=== PATIENT | female | born 1995 | race African-American/Black ===

== ENCOUNTER 2018-10-28 15:11 | Emergency (ER) | payer OTHER ==
[~2018-10-28] VITALS: Ht 152.4 cm; Wt 67.7 kg
[2018-10-28] MEDS ORDERED: FERR325T3 PO (15:28)
[2018-10-28] MEDS ORDERED: EPIN0.155 IM (15:28)
[2018-10-28] MEDS ORDERED: NORCO, ANEXSIA 5/325MG TABLET (HYDROcodone/ACETAMINOPHEN) PO ONE (15:45)
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
[2018-10-28] MEDS ORDERED: CYCL10TA PO (16:28)
[2018-10-28] MEDS ORDERED: IBUP-1022 PO (16:28)
[2018-10-28 16:42] VITALS: BP 137/90
== END 2018-10-28 16:43 | disposition home or self-care (01) ==
LOC: M ED 15:11 → EDBD 15:11 → M ED 16:43
DX: S40.022A Contusion of left upper arm, initial encounter (principal); V48.9XXA Unspecified car occupant injured in noncollision transport accident in traffic accident, initial encounter; F17.210 Nicotine dependence, cigarettes, uncomplicated

== ENCOUNTER 2019-09-04 18:16 | Emergency (ER) | payer OTHER ==
[~2019-09-04] VITALS: Ht 152.4 cm; Wt 65.0 kg
[~2019-09-04 18:16] MED LIST: CYCL10TA PO; EPIN0.1510 IM; FERR325T3 PO; IBUP-1022 PO
[2019-09-04] MEDS ORDERED: ACET-897 PO (18:23)
[2019-09-04] MEDS ORDERED: DEPO150I12 IM (18:23)
[2019-09-04] MEDS ORDERED: PROAAER10 INH (18:23)
[2019-09-04] MEDS ORDERED: ALBU1.25 NEB (18:23)
[2019-09-04] MEDS ORDERED: ONDANSETRON 4MG/2ML VIAL (J2405) IV ONE (18:45)
[2019-09-04] MEDS ORDERED: NS 1,000 ML IV ONE (18:45)
[2019-09-04] MEDS ORDERED: IPRATROPIUM 0.5MG/ALBUTEROL 2.5MG INH SOL UD 3ML (DUONEB)(J7620) NEB ONE (18:45)
[2019-09-04] MEDS ORDERED: methylPREDNISolone INJ 125 MG/2 ML VIAL (J2930) IV ONE (18:45)
[2019-09-04] MEDS ORDERED: KETOROLAC 30 MG/ML VIAL (J1885) IV ONE (18:45)
[2019-09-04 19:16] LABS: BASO % 0.5 % (0.0-1.0); EOS # 0.1 10^3/uL (0.0-0.5); EOS % 1.6 % (0.0-3.0); HEMATOCRIT 32.9 % (36.0-47.0); LYMPH # 1.8 10^3/uL (1.5-5.0); LYMPH % 28.6 % (24.0-44.0); MEAN CORPUSCULAR HEMOGLOBIN 21.7 pg (27.0-33.0); MEAN CORPUSCULAR HGB CONC 30.4 g/dl (32.0-36.5); MEAN CORPUSCULAR VOLUME 71.5 fl (80.0-96.0); MONO # 0.5 10^3/uL (0.0-0.8); MONO % 8.3 % (0.0-5.0); NEUTROPHILS # 3.7 10^3/uL (1.5-8.5); NEUTROPHILS % 60.8 % (36.0-66.0); PLATELET COUNT, AUTOMATED 295 10^3/uL (150-450); WHITE BLOOD COUNT 6.2 10^3/uL (4.0-10.0)
[2019-09-04 19:38] LABS: ALBUMIN 3.9 GM/DL (3.2-5.2); ALT/SGPT 18 U/L (12-78); BILIRUBIN,DIRECT < 0.1 MG/DL (0.0-0.2); BILIRUBIN,TOTAL 0.3 MG/DL (0.2-1.0); LIPASE 81 U/L (73-393); TOTAL PROTEIN 7.5 GM/DL (6.4-8.2)
[2019-09-04 19:44] LABS: INFLUENZA A AMPLIFICATION NEGATIVE (NEGATIVE); INFLUENZA B AMPLIFICATION NEGATIVE (NEGATIVE)
--- NOTE | 2019-09-04 20:00 | REP ---
Clinical: Shortness of breath. Technique: PA and lateral. Findings: Mediastinum and cardiac silhouette are normal. Increased coarsened interstitial markings emanating from the jay suggest bronchitis versus chronic reactive airway disease/asthma. No focal consolidation. No effusion. No pneumothorax. Skeletal structures intact. Impression: Possible bronchitis versus chronic reactive airway disease Electronically Signed by Keshav Khoury MD 09/04/2019 07:52 P
[2019-09-04] MEDS ORDERED: ALBUTEROL SULFATE 2.5 MG/0.5 ML INH NEB SOLN NEB ONE (20:15)
[2019-09-04] MEDS ORDERED: ISOVUE-370 76% 100ML VIAL (Q9967) As Ordered ONE (20:20)
--- NOTE | 2019-09-04 21:17 | REPVR ---
PROCEDURE INFORMATION: Exam: CT Abdomen And Pelvis With Contrast Exam date and time: 09/04/2019 8:31 PM Age: 23 years old Clinical history: Vomiting; Abdominal pain; Periumbilical; Additional info: Vomiting/diarrhea/periumbilic pain TECHNIQUE: Imaging protocol: Computed tomography of the abdomen and pelvis with intravenous contrast. Radiation optimization: All CT scans at this facility use at least one of these dose optimization techniques: automated exposure control; mA and/or kV adjustment per patient size (includes targeted exams where dose is matched to clinical indication); or iterative reconstruction. Contrast material: ISOVUE 370; Contrast volume: 100 ml; Contrast route: IV; COMPARISON: No relevant prior studies available. FINDINGS: Liver: Normal. No mass. Gallbladder and bile ducts: Normal. No calcified stones. No ductal dilation. Pancreas: Normal. No ductal dilation. Spleen: Normal. No splenomegaly. Adrenals: Normal. No mass. Kidneys and ureters: Normal. No hydronephrosis. Stomach and bowel: Unremarkable. No obstruction. No mucosal thickening. Appendix: Appendectomy. Intraperitoneal space: Unremarkable. No free air. No significant fluid collection. Vasculature: Unremarkable. No abdominal aortic aneurysm. Lymph nodes: Unremarkable. No enlarged lymph nodes. Bladder: Mild thickening of the urinary bladder wall. Reproductive: Unremarkable as visualized. Bones/joints: Bilateral sacralization with pseudarthrosis. No acute fracture. Soft tissues: Unremarkable. IMPRESSION: 1. Mild thickening of the urinary bladder wall, can be seen with cystitis. Correlate with urinalysis. No evidence of pyelonephritis. 2. Otherwise, no acute intra-abdominal abnormality. Electronically signed by: Jer Davies On 09/04/2019 21:17:50 PM
[2019-09-04] MEDS ORDERED: PRED20TA PO (21:51)
[2019-09-04] MEDS ORDERED: AZIT-12 PO (21:51)
[2019-09-04] MEDS ORDERED: ONDA4TAB6 PO (21:51)
[2019-09-04 21:58] VITALS: BP 120/68
== END 2019-09-04 22:07 | disposition home or self-care (01) ==
LOC: M ED 18:16
DX: J45.901 Unspecified asthma with (acute) exacerbation (principal); R11.10 Vomiting, unspecified; R19.7 Diarrhea, unspecified; Z79.51 Long term (current) use of inhaled steroids; Z79.899 Other long term (current) drug therapy; Z91.010 Allergy to peanuts
CPT/HCPCS: 71046; 74177; 80047; 80076; 81001; 83690; 84702; 85025; 87502; 87880; 94640; 96361; 96374; 96375; 99284; J1885; J2405; J2930; Q9967

== ENCOUNTER 2020-01-01 14:26 | Emergency (ER) | payer OTHER ==
[~2020-01-01] VITALS: Ht 152.4 cm; Wt 78.5 kg
[~2020-01-01 14:26] MED LIST changes: +ACET-897 PO; +ALBU1.25 NEB; +AZIT-12 PO; +DEPO150I12 IM; +ONDA4TAB6 PO; +PRED20TA PO; +PROAAER10 INH
[2020-01-01] MEDS ORDERED: KETOROLAC 30 MG/ML VIAL (J1885) IV ONE (15:15)
[2020-01-01 15:22] LABS: BASO % 0.6 % (0.0-1.0); EOS # 0.1 10^3/uL (0.0-0.5); EOS % 1.7 % (0.0-3.0); HEMATOCRIT 36.5 % (36.0-47.0); HEMOGLOBIN 10.9 g/dl (12.0-15.5); LYMPH % 31.1 % (24.0-44.0); MEAN CORPUSCULAR HEMOGLOBIN 21.2 pg (27.0-33.0); MEAN CORPUSCULAR HGB CONC 29.9 g/dl (32.0-36.5); MONO # 0.5 10^3/uL (0.0-0.8); MONO % 7.2 % (0.0-5.0); NEUTROPHILS # 3.9 10^3/uL (1.5-8.5); NEUTROPHILS % 59.1 % (36.0-66.0); PLATELET COUNT, AUTOMATED 336 10^3/uL (150-450); RED BLOOD COUNT 5.14 10^6/uL (4.00-5.40); WHITE BLOOD COUNT 6.6 10^3/uL (4.0-10.0)
[2020-01-01 15:56] LABS: ALBUMIN 3.6 GM/DL (3.2-5.2); ALT/SGPT 22 U/L (12-78); BILIRUBIN,DIRECT < 0.1 MG/DL (0.0-0.2); BILIRUBIN,TOTAL 0.4 MG/DL (0.2-1.0); BLOOD UREA NITROGEN 7 MG/DL (7-18); CALCIUM LEVEL 8.7 MG/DL (8.5-10.1); CARBON DIOXIDE LEVEL 27 MEQ/L (21-32); CHLORIDE LEVEL 107 MEQ/L (98-107); GLOMERULAR FILTRATION RATE > 60.0 (>60); GLUCOSE, FASTING 75 MG/DL (70-100); LIPASE 22 U/L (73-393); POTASSIUM SERUM 5.3 MEQ/L (3.5-5.1); SODIUM LEVEL 139 MEQ/L (136-145); TOTAL PROTEIN 7.5 GM/DL (6.4-8.2)
[2020-01-01 16:56] VITALS: BP 123/84
--- NOTE | 2020-01-01 17:00 | REP ---
Pelvic sonography: History: Right lower quadrant pain. Status post appendectomy. Comparison CT study September 04, 2019. Sonographic findings: Transabdominal and transvaginal scanning are performed. Visualized urinary bladder valdes are smooth. Uterine dimensions are normal measuring 7.9 x 3.7 x 4.4 cm. Endometrial echo 0.2 cm thick and centrally placed. Uterine myometrium is slightly heterogeneous. No focal uterine mass is seen. There is a trace of fluid in the anterior cul-de-sac consistent with physiologic fluid. Normal left ovary seen measuring 4.0 x 1.6 x 1.4 cm. Its Doppler flow is present with resistive index 0.58. The right ovary measures 3.8 x 2.4 x 2.8 cm. There is a 2.2 x 1.4 x 1.7 cm complex cyst in the right ovary. Doppler flow is present in the right ovary as well with resistive index 0.57. Impression: No significant abnormality. Doppler flow is present in both ovaries. Electronically Signed by Edison Rogel MD 01/01/2020 05:08 P
== END 2020-01-01 16:57 | disposition home or self-care (01) ==
LOC: M ED 14:26
DX: N83.291 Other ovarian cyst, right side (principal); R79.89 Other specified abnormal findings of blood chemistry; J45.909 Unspecified asthma, uncomplicated; D50.9 Iron deficiency anemia, unspecified; K21.9 Gastro-esophageal reflux disease without esophagitis; Z79.899 Other long term (current) drug therapy; Z91.018 Allergy to other foods
CPT/HCPCS: 76830; 76856; 80048; 80076; 81001; 83605; 83690; 84702; 85025; 93976; 96374; 99284; J1885

== ENCOUNTER 2020-02-12 18:05 | Emergency (ER) | payer OTHER ==
[~2020-02-12] VITALS: Ht 157.5 cm; Wt 80.6 kg
[~2020-02-12 18:05] MED LIST changes: +CYCL-707 PO; -CYCL10TA PO
[2020-02-12 18:06] VITALS: BP 135/90
[2020-02-12] MEDS ORDERED: FERR325T18 (18:21)
[2020-02-12 20:37] LABS: HEMATOCRIT 37.1 % (36.0-47.0); HEMOGLOBIN 10.7 g/dl (12.0-15.5); MEAN CORPUSCULAR HGB CONC 28.8 g/dl (32.0-36.5); MEAN CORPUSCULAR VOLUME 72.9 fl (80.0-96.0); PLATELET COUNT, AUTOMATED 356 10^3/uL (150-450); RED BLOOD COUNT 5.09 10^6/uL (4.00-5.40); WHITE BLOOD COUNT 7.4 10^3/uL (4.0-10.0)
[2020-02-12 21:00] LABS: AMPHETAMINES LEVEL URINE NEGATIVE (NEGATIVE); BARBITURATES URINE NEGATIVE (NEGATIVE); BENZODIAZEPINES URINE NEGATIVE (NEGATIVE); CANNABINOIDS URINE NEGATIVE (NEGATIVE); COCAINE METABOLITE URINE NEGATIVE (NEGATIVE); METHADONE URINE NEGATIVE (NEGATIVE); OPIATES URINE NEGATIVE (NEGATIVE); PHENCYCLIDINE URINE NEGATIVE (NEGATIVE)
[2020-02-12 21:07] LABS: HCG, SERUM QUALITATIVE NEGATIVE (NEGATIVE)
[2020-02-12 21:09] LABS: ACETAMINOPHEN LEVEL < 2.0 UG/ML (10.0-30.0); ALBUMIN 4.3 GM/DL (3.2-5.2); ALT/SGPT 17 U/L (12-78); BILIRUBIN,DIRECT 0.2 MG/DL (0.0-0.2); BILIRUBIN,TOTAL 0.5 MG/DL (0.2-1.0); BLOOD UREA NITROGEN 7 MG/DL (7-18); CARBON DIOXIDE LEVEL 27 MEQ/L (21-32); CHLORIDE LEVEL 106 MEQ/L (98-107); CREATININE FOR GFR 0.76 MG/DL (0.55-1.30); ETHYL ALCOHOL (ETHANOL) < 0.003 % (0.000-0.010); GLOMERULAR FILTRATION RATE > 60.0 (>60); GLUCOSE, FASTING 88 MG/DL (70-100); POTASSIUM SERUM 3.6 MEQ/L (3.5-5.1); SALICYLATE LEVEL < 1.7 MG/DL (5.0-30.0); SODIUM LEVEL 138 MEQ/L (136-145); TOTAL PROTEIN 8.1 GM/DL (6.4-8.2)
== END 2020-02-12 22:36 | disposition home or self-care (01) ==
LOC: M ED 18:05
DX: Z04.6 Encounter for general psychiatric examination, requested by authority (principal); J45.909 Unspecified asthma, uncomplicated; D64.9 Anemia, unspecified; Z91.018 Allergy to other foods
CPT/HCPCS: 36415; 80048; 80076; 80307; 84443; 84703; 85027; 99284; G0480